=== PATIENT | male | born 1990 | race American Indian/Alaskan Native ===

== ENCOUNTER 2018-12-22 17:28 | Emergency (ER) | payer OTHER ==
[2018-12-22] MEDS ORDERED: VISTARIL PO ONE (17:52)
[2018-12-22] MEDS ORDERED: CLARITIN PO ONE (17:52)
--- NOTE | 2018-12-22 17:52 | Emergency Department Report ---
Chief Complaint: Eye Problems Stated Complaint: EYE IRRIATION Time Seen by Provider: 12/22/18 17:51 - HPI History of Present Illness: B EYE IRRITATION NO ALLERGIES PER PT WOKE UP LIKE THIS NOTHING TAKEN AT HOME RX NONE PMH NONE NO TRAUMA NO WELDING NO CHANGE IN VISION MSE screening note: Focused history and physical exam performed. Due to findings the following was ordered: ED Disposition for MSE Condition: Stable
[2018-12-22 17:59] VITALS: BP 141/85
--- NOTE | 2018-12-22 19:50 | Emergency Department Report ---
[facility] Complaint: Eye Problems Stated Complaint: EYE IRRIATION Time Seen by Provider: 12/22/18 17:51 Duration: 2 Days Severity: moderate Symptoms: Yes Eye Itching, Yes Eye Redness, Yes Mucous Drainage, Yes Purulent Drainage, Yes Blurred Vision (intermittent), No Eye Pain, No Preceding URI, No H/O Allergic Rhinitis, No Contact Lens Use, No Trauma, No Fever Other History: 1-year-old -Citizen Of [place] male presents to the emergency room for complaint of red and irritated eyes for 2 days. Patient reports that his girlfriend has a little of the same. 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 Patient reports he wakes up in the morning with his eyelashes matted together with purulent discharge. Patient denies any past medical history denies any known drug allergies. ED Review of Systems ROS: Stated complaint: EYE IRRIATION Other details as noted in HPI Comment: All other systems reviewed and negative Eyes: as per HPI, eye discharge ED Past Medical Hx - Past Medical History Previous Medical History?: No - Surgical History Past Surgical History?: No - Social History Smoking Status: Never Smoker Substance Use Type: None - Medications Home Medications: Home Medications Medication Instructions Recorded Confirmed Last Taken Type Erythromycin [Erythromycin Ophth 1 applic OU QID #2 tube 12/22/18 Unknown Rx Oint] [facility] - Exam General: Vital signs noted. No distress. Alert and acting appropriately. Eye Exam: Both Injection, Both EOMI, Both Mucous Discharge, Both Purulent Discharge HEENT: No Nasal Congestion, No Pharyngeal Erythema Lungs: Yes Clear Lung Sounds, Yes Good Air Exchange ED Course Vital Signs 12/22/18 17:58 Temperature 98.4 F Pulse Rate 59 L Respiratory 20 Rate Blood Pressure 141/85 O2 Sat by Pulse 100 Oximetry ED Medical Decision Making - Medical Decision Making Patient has been evaluated by this provider and a ACC. Patient has conjunctivitis we'll treat with erythromycin ointment to both eyes. Critical care attestation.: If time is entered above; I have spent that time in minutes in the direct care of this critically ill patient, excluding procedure time. ED Disposition Clinical Impression: Acute conjunctivitis, bilateral Qualifiers: Acute conjunctivitis type: unspecified Qualified Code(s): H10.33 - Unspecified acute conjunctivitis, bilateral Disposition: DC-01 TO HOME OR SELFCARE Is pt being admited?: No Does the pt Need Aspirin: No Condition: Stable Instructions: Conjunctivitis (ED) Additional Instructions: Please use eye ointment as prescribed. Wash her hands before using eye ointment and after touching her eyes. This would decrease spreading of this germ. Prescriptions: Erythromycin [Erythromycin Ophth Oint] 1 applic OU QID #2 tube Referrals: [facility] [Primary Care Provider] - 3-5 Days Forms: Work/School Release Form(ED)
== END 2018-12-22 19:57 | disposition home or self-care (01) ==
LOC: ED 17:28
DX: H10.33 Unspecified acute conjunctivitis, bilateral (principal)
CPT/HCPCS: 99282; Q0177